=== PATIENT | female | born 1985 | race African-American/Black ===

== ENCOUNTER 2016-11-01 18:08 | Emergency (ER) | payer MEDICAID ==
[~2016-11-01] VITALS: Ht 172.7 cm; Wt 108.9 kg
[~2016-11-01 18:08] MED LIST: ASPIR-TRIN325 M1 ORAL; CLARITIN-D 241 EACH PO; NEXIUM40 MG ORAL; ZOFRAN4 MG PO; ZYRTEC10 MG ORAL
[2016-11-01] MEDS ORDERED: Adenosine 6mg/2ml Inj IVP ONE (18:30)
[2016-11-01 18:40] VITALS: BP 125/88
[2016-11-01 18:40] LABS: APPEARANCE,URINE SLIGHTLY CLOUDY; KETONES,URINE 4+ (NEGATIVE); LEUKOCYTE ESTERASE ,URINE 2+ (NEGATIVE); NITRITE,URINE NEGATIVE (NEGATIVE); PH,URINE 5 (4.5-8.0); PROTEIN,URINE NEGATIVE (NEGATIVE); UROBILINOGEN,URINE NORMAL MG/DL (0.0-1.0)
[2016-11-01 18:51] LABS: BACTERIA,URINE MODERATE /HPF; SQUAMOUS EPITHELIAL CELL,UR MANY /LPF (NONE/OCC)
[2016-11-01 18:56] LABS: BASOPHILS % (AUTO) 0.8 % (0.0-2.0); EOSINOPHILS % (AUTO) 0.4 % (0.0-3.0); LYMPHOCYTES % (AUTO) 30.5 % (20.0-45.0); MEAN CORPUSCULAR HEMOGLOBIN 28.8 PG (27.0-31.0); MEAN CORPUSCULAR HGB CONC 33.5 G/DL (32.0-36.0); MEAN CORPUSCULAR VOLUME 86 FL (80-99); MEAN PLATELET VOLUME 6.6 FL (6.5-10.1); MONOCYTES % (AUTO) 7.3 % (1.0-10.0); PLATELET COUNT 284 K/UL (150-450); RED CELL DISTRIBUTION WIDTH 12.6 % (11.6-14.8); WHITE BLOOD COUNT 8.4 K/UL (4.8-10.8)
--- NOTE | 2016-11-01 18:59 | Emergency Room Report ---
History of Present Illness General Chief Complaint: Palpitations Source: Patient Present Illness HPI Patient presents with palpitations or rapid heart rate. She states she is having SVT in the past (since age 11). Her heart rate is usually 110-120. She felt it was higher and needed to be checked out. She's had ablation before. She is not on any medication to control the rate at the moment. In addition to that she states that when the rate is [id number] sometimes because of her potassium is low. She does have new medicine from her MD (Prazosin). Seen for same last year. Followed by Dr. Locke. She's also had a pulmonary embolus in the past. Denies chest pain per se (some pressure with the rapid heart rate), leg swelling, calf pain, hemoptysis. No fever, chills, NVD, dizziness. Periods irregular. Not feel she is . No dysuria. Post ablation. MVP. Metoprolol causes her to be nauseated and gain weight. Allergies: Coded Allergies: No Known Allergies (Unverified , 02/11/13) Patient History Past Medical History: see triage record Social History: Denies: alcohol use, drug use, smoking Social History Narrative here with father Reviewed Nursing Documentation: PMH: Agreed, PSxH: Agreed Nursing Documentation-PMH Hx Cardiac Problems: Yes - SVT, afib pulmonary embolism at 23 yrs and 26 yrs Review of Systems All Other Systems: negative except mentioned in HPI Physical Exam Vital Signs Date Time Temp Pulse Resp B/P Pulse Ox O2 Delivery O2 Flow Rate FiO2 11/01/16 18:11 98.2 179 20 132/88 99 Room Air Sp02 EP Interpretation: reviewed, normal General Appearance: well appearing, no apparent distress, GCS 15 Head: normocephalic Eyes: bilateral eye PERRL, bilateral eye normal inspection ENT: moist mucus membranes Neck: supple Respiratory: lungs clear, normal breath sounds Cardiovascular #1: no murmur, tachycardia Cardiovascular #2: 2+ radial (R) Gastrointestinal: normal inspection, normal bowel sounds, non tender, no mass, non-distended Musculoskeletal: back normal, gait/station normal, normal range of motion Neurologic: alert, oriented x3, motor strength/tone normal, DTRs symmetric, sensory intact, cerebellar normal, normal gait, speech normal Psychiatric: depressed affect - flat Skin: normal inspection, warm/dry Procedures Critical Care Time Critical Care Time Total time: 30 min bedside evaluation and treatment excludes procedures (EKG). Reason for critical care: cardiac arrhythmia, chemical attempted conversion, AMA Possible complications: hypotension, hypertension, IN, shock, arrhythmias, metabolic acidosis, end organ damage, respiratory failure. Interventions: adenosine, amiodarone, repeated evaluations Course: Patient presented with rapid heart rate. Appeared SVT. Administration of adenosine while MD at bedside. Failure to convert. Decision for amiodarone. Sl decrease in HR but still rapid. Troponin and D dimer neg. Reassess. Labs with + amphetamine - discussed with patient who denies drugs or meds which could lead to this. Repeat lab. Decision to admit patient. She refuses to stay. Discussed risk of with father and patient. Consultations: nursing staff, EMS, family, review of meds, strip machine tender. Performed by: Dr. Rodrigues Tolerated well condition = serious - AMA Cardioversion Cardioversion: Consent: Verbal Indication: SVT Response: Other - transiently slowed then back to SVT/ST Attempts: One Patient Tolerated: Well Complications: None Progress chemical attempt with adenosine. I was at bedside. Amiodarone given IVPB. Slight decrease in HR. Medical Decision Making Diagnostic Impression: Primary Impression: Tachycardia Additional Impressions: Positive tox screen for amphetamine UTI (urinary tract infection) Qualified Codes: N30.00 - Acute cystitis without hematuria ER Course Patient presents with rapid HR. DDx: SVT, PE, IN, ST, electrolyte abnormality amongst others. Emergent evaluation and treatment initiated. Complex patient with complicated history. Evaluation with EKG, labs, CXR. Treat with IV and attempt cardiovert. See critical care note. Adenosine converted transiently. Still with tachycardia. Trial amiodarone = continued tachycardia. Review of old records show treatment with metoprolol had been successful. Patient refuses. Usually HR better controlled at d/c. Will wait for labs as tolerating without distress. Labs + for amphetamine. She states she is taking new psych PTSD med (Prazosin) . Zyrtec D. No amphetamines. D-dimer negative. CTA not indicated. Downgrade to tele. Admit Dr. Mcneill as [place] and [place] different insurance. Discussed with both. Patient signed out AMA after being explained risk of . HR still rapid. Laboratory Tests Test 11/01/16 18:13 11/01/16 18:45 Urine Color Yellow Urine Appearance Slightly cloudy Urine pH 5 (4.5-8.0) Urine Specific Slemp 1.015 (1.005-1.035) Urine Protein Negative (NEGATIVE) Urine Glucose (UA) Negative (NEGATIVE) Urine Ketones 4+ (NEGATIVE) H Urine Occult Blood 1+ (NEGATIVE) H Urine Nitrite Negative (NEGATIVE) Urine Bilirubin Negative (NEGATIVE) Urine Urobilinogen Normal MG/DL (0.0-1.0) Urine Leukocyte Esterase 2+ (NEGATIVE) H Urine RBC 2-4 /HPF (0 - 2) H Urine WBC 5-10 /HPF (0 - 2) H Urine Squamous Epithelial Cells Many /LPF (NONE/OCC) H Urine Bacteria Moderate /HPF (NONE) H Urine HCG, Qualitative Negative Urine Opiates Screen Negative (NEGATIVE) Urine Barbiturates Screen Negative (NEGATIVE) Phencyclidine (PCP) Screen Negative (NEGATIVE) Urine Amphetamines Screen Positive (NEGATIVE) H Urine Benzodiazepines Screen Positive (NEGATIVE) H Urine Cocaine Screen Negative (NEGATIVE) Urine Marijuana (THC) Screen Negative (NEGATIVE) White Blood Count 8.4 K/UL (4.8-10.8) Red Blood Count 4.80 M/UL (4.20-5.40) Hemoglobin 13.8 G/DL (12.0-16.0) Hematocrit 41.3 % (37.0-47.0) Mean Corpuscular Volume 86 FL (80-99) Mean Corpuscular Hemoglobin 28.8 PG (27.0-31.0) Mean Corpuscular Hemoglobin Concent 33.5 G/DL (32.0-36.0) Red Cell Distribution Width 12.6 % (11.6-14.8) Platelet Count 284 K/UL (150-450) Mean Platelet Volume 6.6 FL (6.5-10.1) Neutrophils (%) (Auto) 61.0 % (45.0-75.0) Lymphocytes (%) (Auto) 30.5 % (20.0-45.0) Monocytes (%) (Auto) 7.3 % (1.0-10.0) Eosinophils (%) (Auto) 0.4 % (0.0-3.0) Basophils (%) (Auto) 0.8 % (0.0-2.0) Prothrombin Time 11.6 SEC (9.30-11.50) H Prothrombin Time INR 1.1 (0.9-1.1) PTT 28 SEC (23-33) D-Dimer 379 ng/mL (<500) Sodium Level 137 mEQ/L (135-145) Potassium Level 3.9 mEQ/L (3.4-4.9) Chloride Level 97 mEQ/L (98-107) L Carbon Dioxide Level 23 mEQ/L (20-30) Anion Gap 17 (5-15) H Blood Urea Nitrogen 7 mg/dL (7-23) Creatinine 0.8 mg/dL (0.5-0.9) Estimate Glomerular Filtration Rate > 60 mL/min (>60) Glucose Level 134 mg/dL (74-106) H Calcium Level 9.3 mg/dL (8.6-10.2) Magnesium Level 1.8 mg/dL (1.7-2.5) Total Bilirubin 0.7 mg/dL (0.0-1.2) Aspartate Amino Transferase (AST) 18 U/L (5-40) Alanine Aminotransferase (ALT) 13 U/L (3-33) Alkaline Phosphatase 98 U/L (35-104) Total Creatine Kinase 101 U/L (26-140) Troponin I < 0.30 ng/mL (<=0.30) Pro-B-Type Natriuretic Peptide 19 pg/mL (0-125) Total Protein 7.3 g/dL (6.6-8.7) Albumin 4.2 g/dL (3.5-5.2) Globulin 3.1 g/dL Albumin/Globulin Ratio 1.3 (1.0-2.7) Thyroid Stimulating Hormone (TSH) 1.750 uIU/mL (0.300-4.500) EKG Diagnostic Results Rate: tachycardiac ST Segments: no acute changes Rhythm Strip Diag. Results EP Interpretation: yes Rhythm: no PVC's, no ectopy, other - SVT vs ST Chest X-Ray Diagnostic Results EP Interpretation: Yes Findings: no consolidation, no effusion, no pneumothorax, no acute cardiopulmonary disease Number of Views: 1 Last Vital Signs Date Time Temp Pulse Resp B/P Pulse Ox O2 Delivery O2 Flow Rate FiO2 11/01/16 22:41 98.2 140 19 125/82 99 Room Air Status: improved Disposition: AGAINST MEDICAL ADVICE Condition: Improved Scripts Nitrofurantoin Monohyd/M-Cryst* (MACROBID 100 MG*) 100 Mg Capsule 100 MG ORAL EVERY 12 HOURS, #14 CAP Prov: Temo Rodrigues M.D. 11/01/16 Temo Rodrigues M.D. Nov 01, 2016 18:59
[2016-11-01 19:11] LABS: INR 1.1 (0.9-1.1); PROTHROMBIN TIME 11.6 SEC (9.30-11.50)
[2016-11-01 19:16] LABS: ALANINE AMINOTRANSFERASE 13 U/L (3-33); ALBUMIN/GLOBULIN RATIO 1.3 (1.0-2.7); ANION GAP 17 (5-15); ASPARTATE AMINO TRANSFERASE 18 U/L (5-40); CALCIUM 9.3 mg/dL (8.6-10.2); CARBON DIOXIDE 23 mEQ/L (20-30); CHLORIDE 97 mEQ/L (98-107); CREATININE 0.8 mg/dL (0.5-0.9); GLOMERULAR FILTRATION RATE > 60 mL/min (>60); HEMOLYSIS 83; MAGNESIUM 1.8 mg/dL (1.7-2.5); POTASSIUM 3.9 mEQ/L (3.4-4.9); SODIUM 137 mEQ/L (135-145); TOTAL PROTEIN 7.3 g/dL (6.6-8.7); TROPONIN I < 0.30 ng/mL (<=0.30)
[2016-11-01 21:06] VITALS: BP 119/81
[2016-11-01] MEDS ORDERED: Nitroglycerin Subl 0.4mg tab (Bottle Of 25) SL PRN (22:15)
[2016-11-01] MEDS ORDERED: DuoNeb 0.5-3(2.5)mg/3ml neb HHN PRN (22:15)
[2016-11-01] MEDS ORDERED: Diltiazem 25mg/5ml IV PRN (22:15)
[2016-11-01] MEDS ORDERED: Miralax 17gm pkt ORAL PRN (22:15)
[2016-11-01] MEDS ORDERED: Enalaprilat 2.5mg/2ml Inj IV PRN (22:15)
[2016-11-01] MEDS ORDERED: Labetalol 5mg/ml 20ml vial IV PRN (22:15)
[2016-11-01 22:41] VITALS: BP 125/82
[2016-11-01] MEDS ORDERED: NITROFURANTOIN100 M2 ORAL (22:44)
[2016-11-02] MEDS ORDERED: Heparin 5000 units/ml inj SUBQ SCH (09:00)
--- NOTE | 2016-11-02 11:36 | Diagnostic Imaging Report ---
Indication: Chest Pain Comparison: 03/17/16 A single view chest radiograph was obtained. Findings: Cardiomediastinal appearance is within normal limits for age. Pulmonary vascularity is appropriate. The diaphragmatic contour is smooth and costophrenic angles are sharp. No pleural effusions are identified. The bones are unremarkable. Impression: No acute findings
== END 2016-11-01 22:50 | disposition left against medical advice (07) ==
LOC: EMR 18:45 → EDBEDREQ 19:51 → EDBEDREQSVC 20:19 → EDBEDREQ 20:19 → CANBEDREQ 21:19 → EMR 22:50
DX: I47.1 Supraventricular tachycardia (principal); F15.99 Other stimulant use, unspecified with unspecified stimulant-induced disorder; N30.90 Cystitis, unspecified without hematuria; Z86.711 Personal history of pulmonary embolism
CPT/HCPCS: 36415; 71010; 80053; 80300; 81003; 81025; 82550; 83735; 83880; 84443; 84484; 85025; 85379; 85610; 85730; 87086; 92960; 93005; 99291; J0153; J0282; J2405